=== PATIENT | female | born 1975 | race Caucasian/White ===

== ENCOUNTER 2016-08-11 09:07 | Observation (INO) | payer OTHER ==
[~2016-08-11] VITALS: Ht 167.6 cm; Wt 72.7 kg
[2016-08-11 09:21] VITALS: BP 96/58
[2016-08-11] MEDS ORDERED: PREN1TAB60 PO (10:20)
[2016-08-11] MEDS ORDERED: IRON1TAB2 PO (10:20)
[2016-08-11] MEDS ORDERED: ONDA4TAB7 PO (10:20)
[2016-08-11] MEDS ORDERED: ONDANSETRON ODT 4 MG ONE (12:41)
[2016-08-11] MEDS ORDERED: ONDANSETRON 4 MG TABLET PO ONE (13:00)
== END 2016-08-11 14:25 | disposition home or self-care (01) ==
LOC: LDOP 09:07 → LDIP 09:10
PROVIDERS: ADMIT Specialist; ATTEND Specialist
DX: O26.893 Other specified pregnancy related conditions, third trimester (principal); O99.013 Anemia complicating pregnancy, third trimester; R55 Syncope and collapse; R11.0 Nausea; Z3A.30 30 weeks gestation of pregnancy
CPT/HCPCS: 59025; G0378; Q0162; 99201; G0463

== ENCOUNTER 2016-10-20 22:46 | Inpatient (IN) | payer OTHER ==
[~2016-10-20] VITALS: Ht 167.6 cm; Wt 72.7 kg
[~2016-10-20 22:46] MED LIST: IRON1TAB2 PO; ONDA4TAB7 PO; PREN1TAB60 PO
[2016-10-20 23:15] VITALS: BP 115/77
[2016-10-20] MEDS ORDERED: OXYTOCIN 30U/ 0.9% NaCL 500ML 500 ML IV ONE (23:43)
[2016-10-20] MEDS ORDERED: OXYTOCIN 30U/ 0.9% NaCL 500ML 500 ML IV PRN (23:43)
[2016-10-20] MEDS ORDERED: morphine SULFATE 10 MG/ML, 1ML ONE (23:51)
[2016-10-21] MEDS ORDERED: METOCLOPRAMIDE 5 MG/ML, 2ML IVPush PRN
[2016-10-21] MEDS ORDERED: TERBUTALINE 1 MG/ML, 1ML IVPush PRN ×2
[2016-10-21] MEDS ORDERED: PENICILLIN GK 5,000,000 UNITS in DEXTROSE 5% 100 ML IVPB ONE
[2016-10-21] MEDS ORDERED: ALUMINUM/MAG/SIMETHICONE 30 ML UDC PO PRN
[2016-10-21] MEDS ORDERED: morphine SULFATE 10 MG/ML, 1ML IVPush ONE
[2016-10-21] MEDS ORDERED: FENTANYL PF 100 MCG/2ML IV PRN
[2016-10-21] MEDS ORDERED: FENTANYL PF 100 MCG/2ML IVPush PRN
[2016-10-21] MEDS ORDERED: NEWBORN KIT ONE (01:57)
[2016-10-21] MEDS ORDERED: CALCIUM CARBONATE 500 MG TAB.CHEW ONE ×3 (04:03→17:33)
[2016-10-21] MEDS: CALCIUM CARBONATE 500 MG TAB.CHEW PO PRN ×2 (07:09→11:16)
[2016-10-21] MEDS: LACTATED RINGERS 1,000 ML IV SCH ×8 (07:09→23:43)
[2016-10-21] MEDS ORDERED: FENTANYL PF 100 MCG/2ML ONE (07:41)
[2016-10-21] MEDS ORDERED: BUPIVACAINE 0.25% ONE (07:42)
[2016-10-21] MEDS ORDERED: FENTANYL/BUPIV./NS/PF 250 ML EPIDCONT ONE (07:42)
[2016-10-21] MEDS: D5%-LACTATED RINGERS 1,000 ML IV SCH ×4 (07:43→23:43)
[2016-10-21] MEDS ORDERED: SODIUM CITRATE/CITRIC ACID 30 ML UDC ONE (09:06)
[2016-10-21] MEDS: SODIUM CITRATE/CITRIC ACID 30 ML UDC PO PRN (09:11)
[2016-10-21] MEDS ORDERED: ACETAMINOPHEN 325 MG TABLET PO PRN (09:30)
[2016-10-21] MEDS ORDERED: FAMOTIDINE 20 MG TABLET PO PRN (09:30)
[2016-10-21] MEDS: FENTANYL/BUPIV./NS/PF 250 ML EPIDCONT SCH (09:44)
[2016-10-21] MEDS ORDERED: FENTANYL/BUPIV./NS/PF 250 ML EPIDCONT SCH (09:44)
[2016-10-21] MEDS ORDERED: LACTATED RINGERS 1,000 ML IVBOLUS PRN ×2 (10:00)
[2016-10-21] MEDS: PENICILLIN GK 2,500,000 UNITS in DEXTROSE 5% 100 ML IV SCH ×4 (12:00→21:00)
[2016-10-21] MEDS ORDERED: CALCIUM CARBONATE 500 MG TAB.CHEW PO PRN (12:00)
[2016-10-21] MEDS ORDERED: ONDANSETRON 2MG/ML, 2ML ONE ×2 (13:57→18:49)
[2016-10-21] MEDS: ONDANSETRON 2MG/ML, 2ML IVPush PRN ×2 (14:00→18:51)
[2016-10-21] MEDS ORDERED: LIDOCAINE 1%, 20ML ONE (17:22)
[2016-10-21] MEDS ORDERED: MISOPROSTOL 200 MCG TABLET ONE (17:22)
[2016-10-21] MEDS ORDERED: OXYTOCIN 30U/ 0.9% NaCL 500ML 500 ML ONE (17:22)
[2016-10-21 18:40] LABS: BLOOD UREA NITROGEN 7 mg/dL (7-18)
[2016-10-21 18:43] LABS: ASPARTATE AMINO TRANSFERASE 10 U/L (15-37)
[2016-10-22] MEDS ORDERED: FENTANYL PF 100 MCG/2ML ONE ×2 (00:31→04:03)
[2016-10-22] MEDS: PENICILLIN GK 2,500,000 UNITS in DEXTROSE 5% 100 ML IV SCH ×4 (01:38→08:00)
[2016-10-22] MEDS: LACTATED RINGERS 1,000 ML IV SCH ×10 (01:44→23:33)
[2016-10-22] MEDS ORDERED: SODIUM CITRATE/CITRIC ACID 30 ML UDC ONE (03:02)
[2016-10-22] MEDS ORDERED: METOCLOPRAMIDE 5 MG/ML, 2ML ONE (03:03)
[2016-10-22] MEDS: SODIUM CITRATE/CITRIC ACID 30 ML UDC PO PRN (03:12)
[2016-10-22] MEDS ORDERED: BUPIVACAINE/PF 0.25% ONE (03:14)
[2016-10-22] MEDS: OXYTOCIN 30U/ 0.9% NaCL 500ML 500 ML IV SCH ×3 (03:33→23:33)
[2016-10-22] MEDS ORDERED: morphine SULFATE/PF 0.5 MG/ML, 10ML ONE (03:59)
[2016-10-22] MEDS ORDERED: CARBOPROST TROMETHAMINE 250 MCG/ML, 1ML IM PRN (04:00)
[2016-10-22] MEDS ORDERED: ONDANSETRON 2MG/ML, 2ML IV PRN (04:00)
[2016-10-22] MEDS ORDERED: METHYLERGONOVINE 0.2 MG/ML IM PRN (04:00)
[2016-10-22] MEDS ORDERED: OXYcodone/APAP 5/325MG TABLET PO PRN (04:00)
[2016-10-22] MEDS ORDERED: MISOPROSTOL 200 MCG TABLET PR PRN (04:00)
[2016-10-22] MEDS ORDERED: CALCIUM CARBONATE 500 MG TAB.CHEW PO PRN (04:00)
[2016-10-22] MEDS ORDERED: NEWBORN KIT ONE (04:22)
[2016-10-22] MEDS ORDERED: KETOROLAC 30 MG/1 ML ONE (05:31)
[2016-10-22] MEDS: KETOROLAC 30 MG/1 ML IVPush SCH ×4 (05:36→23:32)
[2016-10-22 06:15] VITALS: BP 97/63
[2016-10-22 07:15] VITALS: BP 93/57
[2016-10-22] MEDS: D5%-LACTATED RINGERS 1,000 ML IV SCH (07:43)
[2016-10-22] MEDS ORDERED: HYDROmorphone 1 MG/ML, 1ML IVPush PRN (08:00)
[2016-10-22] MEDS ORDERED: ONDANSETRON 2MG/ML, 2ML IVPush PRN (08:00)
[2016-10-22] MEDS ORDERED: DIPHENHYDRAMINE 50 MG/ML, 1ML IV PRN (08:00)
[2016-10-22] MEDS ORDERED: NALOXONE 0.4 MG/ML, 1ML IV PRN (08:00)
[2016-10-22] MEDS: PRENATAL VIT/IRON/FA 1 EACH TABLET PO SCH (09:00)
[2016-10-22] MEDS: FENTANYL/BUPIV./NS/PF 250 ML EPIDCONT SCH (09:44)
[2016-10-22] MEDS: OXYcodone/APAP 5/325MG TABLET PO PRN ×3 (11:39→21:51)
[2016-10-22 11:43] VITALS: BP 97/63
[2016-10-22 19:55] VITALS: BP 92/55
[2016-10-22] MEDS: DOCUSATE 100 MG CAPSULE PO PRN (21:51)
[2016-10-23] MEDS ORDERED: DIPHENHYDRAMINE 25 MG CAPSULE PO PRN
[2016-10-23 00:15] VITALS: BP 94/61
[2016-10-23] MEDS: LACTATED RINGERS 1,000 ML IV SCH ×5 (03:33→19:33)
[2016-10-23] MEDS: KETOROLAC 30 MG/1 ML IVPush SCH (05:30)
[2016-10-23] MEDS: IBUPROFEN 600 MG TABLET PO PRN ×3 (07:33→19:52)
[2016-10-23] MEDS: PRENATAL VIT/IRON/FA 1 EACH TABLET PO SCH (09:00)
[2016-10-23] MEDS: OXYTOCIN 30U/ 0.9% NaCL 500ML 500 ML IV SCH ×2 (09:33→19:33)
[2016-10-23] MEDS: HYDROcodone/APAP 5/325 TABLET PO PRN ×2 (10:16→14:46)
[2016-10-23] MEDS ORDERED: HYDROcodone/APAP 5/325 TABLET PO PRN (15:30)
[2016-10-23 19:45] VITALS: BP 119/76
[2016-10-23] MEDS: SIMETHICONE 80 MG CHEW TAB PO PRN (19:52)
[2016-10-23] MEDS: DOCUSATE 100 MG CAPSULE PO PRN (19:52)
[2016-10-23] MEDS: HYDROcodone/APAP 10/325 MG TABLET PO PRN (20:29)
[2016-10-24] MEDS: HYDROcodone/APAP 10/325 MG TABLET PO PRN ×6 (00:35→20:39)
[2016-10-24] MEDS: IBUPROFEN 600 MG TABLET PO PRN ×4 (02:40→23:02)
[2016-10-24] MEDS: SIMETHICONE 80 MG CHEW TAB PO PRN ×4 (02:40→20:39)
[2016-10-24] MEDS: LACTATED RINGERS 1,000 ML IV SCH (03:33)
[2016-10-24 06:50] VITALS: BP 101/63
[2016-10-24] MEDS: DOCUSATE 100 MG CAPSULE PO PRN ×2 (07:51→20:39)
[2016-10-24] MEDS: PRENATAL VIT/IRON/FA 1 EACH TABLET PO SCH (07:51)
[2016-10-24 19:20] VITALS: BP 98/62
[2016-10-25] MEDS: HYDROcodone/APAP 10/325 MG TABLET PO PRN ×6 (00:43→22:04)
[2016-10-25] MEDS: IBUPROFEN 600 MG TABLET PO PRN ×3 (05:04→17:52)
[2016-10-25] MEDS: SIMETHICONE 80 MG CHEW TAB PO PRN ×2 (05:04→19:57)
[2016-10-25] MEDS: DOCUSATE 100 MG CAPSULE PO PRN ×2 (07:45→19:57)
[2016-10-25] MEDS: PRENATAL VIT/IRON/FA 1 EACH TABLET PO SCH (07:45)
[2016-10-25 07:51] VITALS: BP 110/72
[2016-10-25 20:00] VITALS: BP 109/71
[2016-10-25] MEDS ORDERED: HYDR-3240 PO (22:27)
[2016-10-25] MEDS ORDERED: IBUP800T PO (22:27)
[2016-10-25] MEDS ORDERED: DOCU-30 PO (22:28)
[2016-10-25] MEDS ORDERED: FERR325T20 PO (22:30)
[2016-10-26] MEDS: IBUPROFEN 600 MG TABLET PO PRN ×2 (00:09→05:59)
[2016-10-26] MEDS: HYDROcodone/APAP 10/325 MG TABLET PO PRN ×2 (01:53→05:59)
[2016-10-26] MEDS: SIMETHICONE 80 MG CHEW TAB PO PRN (05:59)
[2016-10-26] MEDS ORDERED: GLYCERIN ADULT SUPP PR ONE (07:30)
[2016-10-26 08:00] VITALS: BP 106/68
[2016-10-26] MEDS: DOCUSATE 100 MG CAPSULE PO PRN (08:00)
[2016-10-26] MEDS: PRENATAL VIT/IRON/FA 1 EACH TABLET PO SCH (08:00)
== END 2016-10-26 12:50 | disposition home or self-care (01) | DRG 766 ==
LOC: LDOP 22:46 → LDIP 23:38 → 2NW 10-22 06:16
PROVIDERS: ADMIT Student in an Organized Health Care Education/Training Program; ATTEND Student in an Organized Health Care Education/Training Program
PROC: 0UB70ZZ Excision of Bilateral Fallopian Tubes, Open Approach (ICD-10-PCS; principal; 2016-10-22)
PROC: 10D00Z1 Extraction of Products of Conception, Low, Open Approach (ICD-10-PCS; 2016-10-22)
DX: O99.824 Streptococcus B carrier state complicating childbirth (principal); Z30.2 Encounter for sterilization; O69.81X0 Labor and delivery complicated by cord around neck, without compression, not applicable or unspecified; O99.02 Anemia complicating childbirth; O09.513 Supervision of elderly primigravida, third trimester; O77.0 Labor and delivery complicated by meconium in amniotic fluid; Z37.0 Single live birth; O62.0 Primary inadequate contractions; D64.9 Anemia, unspecified; Z3A.40 40 weeks gestation of pregnancy
CPT/HCPCS: 36415; 80053; 82803; 85025; 86850; 86900; 88302; J1885; J2274; J2405; J2540; J3010; J3490; J2590; J2765; J7120; J7121; Q0163